=== PATIENT | male | born 1985 | race Caucasian/White ===

== ENCOUNTER 2025-04-04 10:16 | Emergency (ER) | payer BC, SELFPAY ==
[2025-04-04 10:16] VITALS: BMI 23.7
[2025-04-04 10:29] VITALS: BP 129/70
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
[2025-04-04 11:35] VITALS: BP 118/74
== END 2025-04-04 11:35 | disposition home or self-care (01) ==
LOC: EMR 10:16
PROVIDERS: EMERGENCY PHYSICIAN Emergency Medicine; FAMILY PHYSICIAN Internal Medicine
DX: S01.01XA Laceration without foreign body of scalp, initial encounter (principal); V86.95XA Unspecified occupant of 3- or 4- wheeled all-terrain vehicle (ATV) injured in nontraffic accident, initial encounter
CPT/HCPCS: 99281